=== PATIENT | male | born 1990 | race Two or more races ===

== ENCOUNTER 2022-05-19 06:18 | Day surgery (SDC) | payer OTHER ==
[~2022-05-19] VITALS: Ht 160 cm; Wt 81.6 kg
[2022-05-19] MEDS ORDERED: PERCOCET 5-3251 EACH PO (12:29)
[2022-05-19] MEDS ORDERED: DERMOPLAST PAIN78 GM TOP (12:30)
[2022-05-19] MEDS ORDERED: NEURONTIN300 MG PO (12:30)
[2022-05-19] MEDS ORDERED: KETO10TA2 PO (12:30)
== END 2022-05-19 15:40 | disposition home or self-care (01) ==
LOC: CIR.AMB 06:18
PROVIDERS: ATTEND Surgery
DX: K62.89 Other specified diseases of anus and rectum (principal); K62.5 Hemorrhage of anus and rectum; Z20.822 Contact with and (suspected) exposure to COVID-19